=== PATIENT | male | born 1985 | race Caucasian/White ===

== ENCOUNTER 2017-02-21 21:04 | Emergency (ER) | payer SELFPAY ==
[2017-02-21 21:14] VITALS: BP 141/84; BMI 20.9
[2017-02-21] MEDS ORDERED: TYLENOL #3 TAB (W/CODEINE) PO ONE ×2 (22:53→22:54)
[2017-02-21] MEDS ORDERED: BACTRIM DS TAB PO ONE ×2 (22:53→22:54)
--- NOTE | 2017-02-22 08:59 | DR.GENAD ---
HPI - PCP Primary Care Physician: NFD - Complaint/Symptoms Chief Complaint:: ABSCESS UNDER LEFT ARM; WARM TO TOUCH; YELLOW/GREEN SMELLY DISCHARGE; VERY PAINFUL; BILATERAL HANDS STARTED PEELING AFTER ABSCESS STARTED Self Treatment fo Chief Complaint: IBUPROFEN - Source History Provided: Patient - Mode of Arrival Mode of Arrival: Ambulatory - Timing Onset of Chief Complaint: 02/16/17 <TOMAS GARCIAS - Last Filed: 02/22/17 09:16> PMH - PMH Past Medical History: Yes Past Medical History: Hypertension Past Medical History Comment: [place] NONHODGKINS LYMPHOMA Past Surgical History: No Surgical History: No History - Family History History of Family Medical Conditions: Yes Family Medical History: Diabetes Mellitus, Cancer, [place], Coronary Artery Disease, Heart Failure, Hypertension - Social History Does patient currently use any type of tobacco product: Yes Have you used tobacco products in the last 12 months: Yes Type of Tobacco Use: Smokeless Does any household member use tobacco: Yes Alcohol Use: None Do you use any recreational Drugs:: No Lives With: Spouse Lives Where: Home - infectious screening In the last 2 months have you had wt loss of >10#?: NO Have you had fever, night sweats or hemotysis?: No Have you traveled outside the country in the last 6 months?: No Isolation: Standard <TOMAS GARCIAS - Last Filed: 02/22/17 09:16> ROS - Review of Systems Eyes: No Symptoms Reported ENTM: No Symptoms Reported Respiratoy: No Symptoms Reported Cardiovascular: No Symptoms Reported Gastrointestinal/Abdominal: No Symptoms Reported Genitourinary: No Symptoms Reported Neurological: No Symptoms Reported Musculoskeletal: No Symptoms Reported Integumentary: Lesions (left arm pit erythematous tender lesion c/w carbuncle) Hematologic/Lymphatic: No Symptoms Reported Endocrine: No Symptoms Reported Psychiatric: No Symptoms Reported All Other Systems: Reviewed and Negative <XIOMARA AGUILERA - Last Filed: 02/26/17 00:28> PE - General General Appearance: Alert, In No Apparent Distress - Head Head Exam: Normal Inspection, Atraumatic - Eyes Eye exam: Normal Appearance, PERRL, EOMI - ENT ENT Exam: Normal Exam External Ear Exam: Normal External Inspection TM/Canal Exam: Bilateral Normal Nose Exam: Normal Nose Exam Mouth Exam: Normal Inspection Throat Exam: Normal Inspection - Neck Neck Exam: Normal Inspection, Full ROM - Chest Chest Inspection: Normal Inspection - Respiratory Respiratory Exam: Normal Lung Sounds Bilat Respiratory Exam: Bilateral Clear to Auscultation - Cardiovascular Cardiovascular Exam: Regular Rate, Normal Rhythm - Abdominal Exam Abdominal Exam: Normal Inspection, Normal Bowel Sounds Abdominal Tenderness: negative: RUQ, RLQ, LUQ, LLQ, Epigastrium, Suprapubic, Diffuse, Mild, Moderate, Severe, Other - Extremities Extremities Exam: Normal Inspection, Other (left axilla anteriorally a tender non fluctuant mass c/wo a carbuncle) - Back Back Exam: Normal Inspection, Full ROM - Neurologic Neurological Exam: Alert, Oriented X3, CN II-XII Intact - Psychiatric Psychiatric Exam: Normal Affect, Normal Mood - Skin Skin Exam: Warm, Dry, Intact <XIOMARA AGUILERA - Last Filed: 02/26/17 00:28> - Vital Signs Vitals: Temperature 97.9 F Pulse Rate 84 Respiratory Rate 16 Blood Pressure 141/84 O2 Sat by Pulse Oximetry 100 <TOMAS GARCIAS - Last Filed: 02/22/17 09:16> <XIOMARA AGUILERA - Last Filed: 02/26/17 00:28> - Diagnosis Discharge Problem: Carbuncle of axilla - Discharge Plan Disposition: 01 HOME, SELF-CARE Condition: Stable Prescriptions: Acetaminophen/Codeine Tab [TYLENOL w/CODEINE #3 (300 MG/30 MG) *] 1 tab PO Q4H PRN #15 tab PRN Reason: Pain Sulfamethoxazole-Trimethoprim [BACTRIM DS TAB 800/160 MG *] 1 tab PO BID #20 tab - Follow ups/Referrals Follow ups/Referrals: NFD,None [Primary Care Provider] - 3 days - Instructions Instructions: Abscess, [id number], Wound Infection, [id number]
== END 2017-02-21 23:05 | disposition home or self-care (01) ==
LOC: ER 21:04
DX: L02.432 Carbuncle of left axilla (principal)
CPT/HCPCS: 99282

== ENCOUNTER 2017-03-06 20:27 | Emergency (ER) | payer SELFPAY ==
[2017-03-06 20:35] VITALS: BP 144/83; BMI 20.9
[2017-03-06] MEDS ORDERED: PEPCID TAB 20 MG PO ONE (21:02)
[2017-03-06] MEDS ORDERED: LEVSIN/MAALOX/LIDOC VISC PO ONE (21:03)
[2017-03-06] MEDS ORDERED: REGLAN TAB 10 MG PO STA (21:10)
[2017-03-06] MEDS ORDERED: PEPCID TAB 20 MG ONE (21:10)
[2017-03-06] MEDS ORDERED: LEVSIN/MAALOX/LIDOC VISC ONE (21:10)
--- NOTE | 2017-03-06 21:10 | DR.GENAD ---
HPI - PCP Primary Care Physician: NFD - Complaint/Symptoms Chief Complaint Doctors Comments: Patient is complaining of xiphoid and epigastric pain with the pain worst when he eats for the past three days. States he has been unable to keep anything down today and he does not have any pain when he is starving but when he eats the pain is severe. states the pain is 10 of 10 and confined to the lower chest and epigastric area. States he was a patient of Dr. Mcwilliams but he has no local doctor presently. States the pain is sharp. He denies nausea, vomiting or diarrhea. states he stopped smoking in 2003 but he dip tobacco. States he drinks a beer rarely. He denies anabelle or hermaturia. states he tooka motrin this amd and drink a Sprite but he took three jarad of the drink and could not eat or drink anything else. He denies problems with stomach ulcers. Chief Complaint:: PT STATES HE IS HAVING PAIN IN THE CENTER OF HIS CHEST THAT IS WORSE WHEN HE EATS. PT STATES TO BEGIN WITH HE THOUGHT HE WAS HAVING HEART BURN, BUT TODAY HE HAS ONLY HAD WATER AND IS STILL IN PAIN. PT STATES THE ONLY TIME HE IS NOT IN PAIN IS WHEN HE FEELS LIKE HE IS STARVING OR ON AN EMPTY STOMACH. Self Treatment fo Chief Complaint: IBUPROFEN - Nurses notes reviewed Nurses Notes Review: Yes - Source History Provided: Patient - Mode of Arrival Mode of Arrival: Ambulatory - Timing Onset of Chief Complaint: 03/03/17 Came on: Gradually - Duration Duration: Constant How lon Duration: Days - Location Location: epigastric and xiphoid pain - Severity Severity: Moderate, Severe - Modifying Factors Worsens:: eating Improves:: nothing PMH - PMH Past Medical History: Yes Past Medical History: Hypertension Past Medical History Comment: LYMPHOMA Past Surgical History: No Surgical History: No History - Family History History of Family Medical Conditions: Yes Family Medical History: Diabetes Mellitus, Cancer, [place], Coronary Artery Disease, Heart Failure, Hypertension - Social History Type of Tobacco Use: Smokeless Alcohol Use: Rarely Do you use any recreational Drugs:: No Lives With: Family Lives Where: Home - infectious screening In the last 2 months have you had wt loss of >10#?: NO Have you had fever, night sweats or hemotysis?: No Have you traveled outside the country in the last 6 months?: No Isolation: Standard ROS - Review of Systems Constitutional: No Symptoms Reported, Loss of Appetite. negative: See HPI, Chills, Diaphoresis, Fever, Malaise, Weakness, Irritable, Fatigue, Other Eyes: No Symptoms Reported ENTM: No Symptoms Reported. negative: See HPI, Ear Pain, Ear Discharge, Pulling on Ears, Hearing Loss, Nose Pain, Nose Discharge, Epistaxis, Nose Congestion, Mouth Pain, Mouth Swelling, Loose Teeth, Drooling, Throat Pain, Throat Swelling, Ear Foreign Body Respiratoy: No Symptoms Reported Cardiovascular: No Symptoms Reported, Chest Pain (xiphoid chest pain) Gastrointestinal/Abdominal: Abdominal Pain (epigastric pain), Food Intolerance. negative: No Symptoms Reported, See HPI, Constipation, Diarrhea, Nausea, Vomiting, Other Genitourinary: No Symptoms Reported Neurological: No Symptoms Reported. negative: See HPI, Anxiety, Depressed, Emotional Problems, Headache, Numbness, Paresthesia, Pre-existing Deficit, Seizure, Tingling, Tremors, Weakness, Dizziness, Problems Walking, Speech Problem, Other Musculoskeletal: No Symptoms Reported Integumentary: No Symptoms Reported, Rash (macular erythematous rash on chest) Hematologic/Lymphatic: No Symptoms Reported Endocrine: negative: No Symptoms Reported, See HPI, Excessive Sweating, Flushing , Intolerance to Cold, Intolerance to Heat, Increased Hunger, Increased Thirst, Increased Urine, Unexplained Weight Gain, Unexplained Weight Loss, Failure to Thrive, Decreased Appetite, Other Psychiatric: No Symptoms Reported. negative: See HPI, Anxiety, Depression, Hallucinations, Excessive crying, Suicidal, Other PE - Vital Signs Vitals: Temperature 98.3 F Pulse Rate 101 Respiratory Rate 20 Blood Pressure 144/83 O2 Sat by Pulse Oximetry 98 - General Limitations: No Limitations General Appearance: Alert, In Distress (moderate). negative: In No Apparent Distress, Appears Intoxicated, Anxious, Lethargic, Obtunded, Obese, Cachectic, Other - Head Head Exam: Normal Inspection, Atraumatic, Normocephalic - Eyes Eye exam: Normal Appearance, PERRL, EOMI. negative: Scleral Icterus, Conjunctival Injection, Nystagmus, Miosis, Mydrasis, Periorbital Swelling, Periorbital Tenderness, Other - ENT ENT Exam: Normal Exam, Normal Oropharynx, Normal External Ear Exam, Mucous Membranes Moist, TM's Normal Bilaterally External Ear Exam: Normal External Inspection TM/Canal Exam: Bilateral Normal Nose Exam: Normal Nose Exam. negative: Sinus Tenderness, Nasal Deviation, Crepitus, Septal Hematoma, Laceration, Abrasion, Other Mouth Exam: Normal Inspection. negative: Drooling, Trismus, Lip Swelling, Tongue Elevation, Tongue Swelling, Laceration, Other Throat Exam: Normal Inspection. negative: Tonsillar Erythema, Tonsillomegaly, Tonsillar Exudate, R Peritonsillar Mass, L Peritonsillar Mass, Muffled Voice, Other - Neck Neck Exam: Normal Inspection, Full ROM, Trachea Midline. negative: Tenderness, Meningismus, Lymphadenopathy, Thyromegaly, Other - Chest Chest Inspection: Normal Inspection, Symmetric Chest Wall Rise. negative: Tenderness, Rash, Abscess, Other - Respiratory Respiratory Exam: Normal Lung Sounds Bilat Respiratory Exam: Bilateral Clear to Auscultation - Cardiovascular Cardiovascular Exam: Regular Rate, Normal Rhythm, Normal Heart Sounds. negative : Bradycardia, Tachycardia, Irregular Rhythm, Systolic Murmur, Diastolic Murmur , Rubs, Gallop, Clicks, JVD, +S1, +S2, +S3, +S4, Other - Abdominal Exam Abdominal Exam: Normal Inspection, Normal Bowel Sounds, Soft, Tenderness ( epigastric tenderness), Guarding Abdominal Tenderness: Epigastrium, Moderate. negative: RUQ, RLQ, LUQ, LLQ, Suprapubic, Diffuse, Mild, Severe, Other - Extremities Extremities Exam: Normal Inspection, Full ROM, Normal Capillary Refill. negative: Tenderness, Edema, Joint Swelling, Calf Tenderness, Other - Back Back Exam: Normal Inspection, Full ROM. negative: Tenderness, (R) CVA Tenderness, (L) CVA Tenderness, Muscle Spasm, Paraspinal Tenderness, Vertebral Tenderness, Rashes, (R) Sciatic Notch Tenderness, (L) Sciatic Notch Tendern, (R ) Straight Leg Raise, (L) Straight Leg Raise, Other - Neurologic Neurological Exam: Alert, Oriented X3, CN II-XII Intact, Normal Gait, Reflexes Normal. negative: Motor Sensory Deficit, Other - Psychiatric Psychiatric Exam: Normal Affect, Normal Mood. negative: Depressed, Agitated, Anxious, Flat Affect, Manic, Homicidal Ideation, Suicidal Ideation, Other - Skin Skin Exam: Warm, Dry, Intact, Normal Color, Rash ROR - Labs Reviewed Laboratory Results Reviewed?: Yes (all labs and x-ray results reviewed and discussed with patient) Result Diagrams: 03/06/17 21:09 03/06/17 21:09 Laboratory: WBC 10.3 X10^3/uL (3.6-10.0) H 03/06/17 21:09 RBC 4.63 X10^6/uL (4.7-6.0) L 03/06/17 21:09 Hgb 14.7 g/dL (13.5-18.0) 03/06/17 21:09 Hct 41.5 % (42.0-54.0) L 03/06/17 21:09 MCV 89.6 fL (80.0-100.0) 03/06/17 21:09 MCH 31.7 pg (27.0-34.0) 03/06/17 21:09 MCHC 35.4 g/dL (33.0-35.0) H 03/06/17 21:09 RDW 12.7 % (11.6-16.5) 03/06/17 21:09 Plt Count 208 X10^3/uL (150.0-450.0) 03/06/17 21:09 MPV 8.9 fL (7.4-11.0) 03/06/17 21:09 Neut % 84.1 % (42.0-75.0) H 03/06/17 21:09 Lymph % 8.7 % (21.0-51.0) L 03/06/17 21:09 [place] % 5.2 % (0.0-13.0) 03/06/17 21:09 Eos % 1.6 % (0.9-2.9) 03/06/17 21:09 Baso % 0.4 % (0.2-1.0) 03/06/17 21:09 Neut # 8.6 x10^3/uL (2.2-4.8) H 03/06/17 21:09 Lymph # 0.9 X10^3/uL (1.3-2.9) L 03/06/17 21:09 [place] # 0.5 x10^3/uL (0.3-0.8) 03/06/17 21:09 Eos # 0.2 x10^3/uL (0.0-0.2) 03/06/17 21:09 Baso # 0.0 X10^3/uL (0.0-0.1) 03/06/17 21:09 Absolute Nucleated RBC 0.1 /100WBC 03/06/17 21:09 INR Target Range - 03/06/17 21:09 INR 1.06 (0.8-1.3) 03/06/17 21:09 PTT 27.5 SECONDS (22.9-36.5) 03/06/17 21:09 PTT Comment - 03/06/17 21:09 Sodium 141 mmol/L (136-145) 03/06/17 21:09 Corrected Sodium TNP 03/06/17 21:09 Potassium 3.8 mmol/L (3.5-5.1) 03/06/17 21:09 Chloride 102 mmol/L (98-107) 03/06/17 21:09 Carbon Dioxide 30.8 mmol/L (21-32) 03/06/17 21:09 BUN 14 mg/dL (7-18) 03/06/17 21:09 Creatinine 1.25 mg/dL (0.70-1.30) 03/06/17 21:09 Est GFR (MDRD) Af Amer > 60 (>60) 03/06/17 21:09 Est GFR (MDRD) Non-Af > 60 (>60) 03/06/17 21:09 Glucose 92 mg/dL (65-99) 03/06/17 21:09 Calcium 9.0 mg/dL (8.5-10.1) 03/06/17 21:09 Corrected Calcium TNP 03/06/17 21:09 Magnesium 1.8 mg/dL (1.7-2.9) 03/06/17 21:09 Total Bilirubin 0.60 mg/dL (0.2-1.0) 03/06/17 21:09 AST 255 Units/L (15-37) H 03/06/17 21:09 ALT 301 Units/L (12-78) H 03/06/17 21:09 Alkaline Phosphatase 131 Units/L (46-116) H 03/06/17 21:09 Creatine Kinase 110 Units/L (39-308) 03/06/17 21:09 CK-MB (CK-2) < 1.0 ng/mL (0-4.0) 03/06/17 21:09 CK/CKMB % Calc 0.9 % (<4) 03/06/17 21:09 Troponin I < 0.02 ng/mL (0-1.5) 03/06/17 21:09 Total Protein 7.4 g/dL (6.4-8.2) 03/06/17 21:09 Albumin 4.0 g/dL (3.4-5.0) 03/06/17 21:09 Globulin 3.4 g/dL (2.5-4.5) 03/06/17 21:09 Albumin/Globulin Ratio 1.2 Ratio (1.1-2.1) 03/06/17 21:09 Amylase 73 Units/L (25-115) 03/06/17 21:09 Lipase 388 Units/L (73-393) 03/06/17 21:09 H. pylori IgG Antibody Positive (NEGATIVE) A 03/06/17 21:09 - XRAY XRAY Interpreted by: Radiologist (abdominal series: Normal abdominal series and chest x-ray.) - EKG Rate: 86 [place]: Normal Rhythm: NSR Block: None Hypertrophy: RVH ST: Nonsp - Diagnosis Discharge Problem: Duodenitis, Abnormal liver enzymes, Chest pain Abdominal pain Qualifiers: Abdominal location: epigastric Qualified Code(s): R10.13 - Epigastric pain - Discharge Plan Disposition: HOME, SELF-CARE Condition: Stable Prescriptions: Bismuth Subsalicylate [Pepto-Bismol] 524 mg PO QID PRN #240 ml PRN Reason: Metronidazole [Flagyl Tab 500 mg] 500 mg PO BID PRN #28 tab PRN Reason: Ranitidine HCl [ZANTAC TAB 150 MG *] 150 mg PO BID #60 tab Tetracycline HCl 500 mg PO BID PRN #28 capsule PRN Reason: - Follow ups/Referrals Follow ups/Referrals: LARRY,None [Primary Care Provider] - 3 days MICAELA WESTON [STAFF PHYSICIAN] - 3 days - Instructions Instructions: Duodenitis, Helicobacter Pylori Antibodies Test
[2017-03-06 21:36] LABS: BLOOD UREA NITROGEN 14 mg/dL (7-18); CARBON DIOXIDE 30.8 mmol/L (21-32); CHLORIDE 102 mmol/L (98-107); CREATININE 1.25 mg/dL (0.70-1.30); SODIUM 141 mmol/L (136-145); TROPONIN I < 0.02 ng/mL (0-1.5); eGFR BLACK RACES > 60 (>60); eGFR NON BLACK RACES > 60 (>60)
[2017-03-06 21:40] LABS: ALANINE AMINOTRANSFERASE 301 Units/L (12-78); ALKALINE PHOSPHATASE 131 Units/L (46-116); AMYLASE 73 Units/L (25-115); ASPARTATE AMINO TRANSFERASE 255 Units/L (15-37); CKMB % 0.9 % (<4); CREATINE KINASE 110 Units/L (39-308); CREATINE KINASE MB < 1.0 ng/mL (0-4.0); LIPASE 388 Units/L (73-393); MAGNESIUM 1.8 mg/dL (1.7-2.9); TOTAL PROTEIN 7.4 g/dL (6.4-8.2)
--- NOTE | 2017-03-06 21:44 | RAD ---
EXAM: Abdomen series and Chest x-ray INDICATION: Abdominal pain COMPARISION: No priors TECHNIQUE: Abdomen flat and upright, two views and PA view of the chest, single view FINDINGS: The lungs are clear. No pneumothorax or pleural effusion. The cardiac silhouette and mediastinum are normal. The bowel gas pattern is nonobstructed. No abnormal mass effect or calcification. The regiona l skeleton is intact. No free air is seen under the hemidiaphragms. IMPRESSION: Normal abdominal series and chest x-ray. Reported By:
[2017-03-06 21:48] LABS: BASOPHILS % (AUTO) 0.4 % (0.2-1.0); EOSINOPHILS # (AUTO) 0.2 x10^3/uL (0.0-0.2); EOSINOPHILS % (AUTO) 1.6 % (0.9-2.9); HEMATOCRIT 41.5 % (42.0-54.0); HEMOGLOBIN 14.7 g/dL (13.5-18.0); LYMPHOCYTES # (AUTO) 0.9 X10^3/uL (1.3-2.9); LYMPHOCYTES % (AUTO) 8.7 % (21.0-51.0); MEAN CORPUSCULAR HEMOGLOBIN 31.7 pg (27.0-34.0); MEAN CORPUSCULAR HGB CONC 35.4 g/dL (33.0-35.0); MEAN CORPUSCULAR VOLUME 89.6 fL (80.0-100.0); MEAN PLATELET VOLUME 8.9 fL (7.4-11.0); MONOCYTES # (AUTO) 0.5 x10^3/uL (0.3-0.8); MONOCYTES % (AUTO) 5.2 % (0.0-13.0); NEUTROPHILS # (AUTO) 8.6 x10^3/uL (2.2-4.8); NEUTROPHILS % (AUTO) 84.1 % (42.0-75.0); PLATELET COUNT 208 X10^3/uL (150.0-450.0); RED BLOOD COUNT 4.63 X10^6/uL (4.7-6.0); RED CELL DISTRIBUTION WIDTH 12.7 % (11.6-16.5); WHITE BLOOD COUNT 10.3 X10^3/uL (3.6-10.0)
== END 2017-03-06 22:18 | disposition home or self-care (01) ==
LOC: ER 20:40
DX: K29.80 Duodenitis without bleeding (principal); R10.13 Epigastric pain; R74.8 Abnormal levels of other serum enzymes; R07.89 Other chest pain; B96.81 Helicobacter pylori [H. pylori] as the cause of diseases classified elsewhere
CPT/HCPCS: 36415; 74022; 80053; 82150; 82550; 82553; 83690; 83735; 84484; 85025; 85610; 85730; 86677; 93005; 93010; 99283

== ENCOUNTER 2017-09-22 | Emergency (ER) | payer SELFPAY ==
[2017-09-22 00:14] VITALS: BP 132/94; BMI 22.8
--- NOTE | 2017-09-22 00:39 | DR.GENAD ---
HPI - PCP Primary Care Physician: NFD - HPI Comment HPI Comment: STARTED WHEN PATIENT SCAPE ELBOW ON CONCRETE. INCRESING REDNESS AND PAIN SINCE. USE LOCAL ANTIBIOTIC WHICH DID NOT HELP. ABSCESS STARTED DRAINING PUS. NOW TISSUE IN WOUND IS NECROTIC. NO FEVER. - Complaint/Symptoms Chief Complaint Doctors Comments: LEFT ELBOW ABSCESS WHICH IS DRAINING. Chief Complaint:: SMALL [place] AREA TO LEFT ELBOW THAT GREW IN SIZE AND IS DRAINING, BROWN DRAINAGE Self Treatment fo Chief Complaint: ANTI CREAM. AMOX PO - Nurses notes reviewed Nurses Notes Review: Yes - Source History Provided: Patient - Mode of Arrival Mode of Arrival: Ambulatory - Timing Onset of Chief Complaint: 09/21/17 Came on: Suddenly - Duration Duration: Constant Duration: Days - Severity Severity: Moderate PMH - PMH Past Medical History: Yes Past Medical History: Headaches, Hypertension Past Medical History Comment: CANCER- NON COOK/LYMP Past Surgical History: Yes Surgical History: No History Past Surgical History Comment: HEART CATH - Family History History of Family Medical Conditions: Yes Family Medical History: Diabetes Mellitus, Cancer, [place], Hypertension - Social History Does patient currently use any type of tobacco product: Yes Have you used tobacco products in the last 12 months: Yes Type of Tobacco Use: DIP Does any household member use tobacco: No Alcohol Use: None Do you use any recreational Drugs:: No Lives With: Spouse Lives Where: Home - infectious screening In the last 2 months have you had wt loss of >10#?: NO Have you had fever, night sweats or hemotysis?: No Have you traveled outside the country in the last 6 months?: No Isolation: Standard ROS - Review of Systems Constitutional: No Symptoms Reported Eyes: No Symptoms Reported ENTM: No Symptoms Reported Respiratoy: No Symptoms Reported Cardiovascular: No Symptoms Reported Gastrointestinal/Abdominal: No Symptoms Reported Genitourinary: No Symptoms Reported Neurological: No Symptoms Reported Musculoskeletal: No Symptoms Reported Integumentary: Other (ABSCESS LEFT ELBOW, DRAINIG. NECROTIC TISSUE SEEN IN ABSCESS.) Hematologic/Lymphatic: No Symptoms Reported Endocrine: No Symptoms Reported All Other Systems: Reviewed and Negative PE - Vital Signs Vitals: Temperature 98.5 F Pulse Rate 91 Respiratory Rate 20 Blood Pressure 132/94 O2 Sat by Pulse Oximetry 97 - General Limitations: No Limitations General Appearance: Alert - Head Head Exam: Normal Inspection - Eyes Eye exam: Normal Appearance - ENT ENT Exam: Normal External Ear Exam External Ear Exam: Normal External Inspection TM/Canal Exam: Bilateral Normal Mouth Exam: Normal Inspection Throat Exam: Normal Inspection - Neck Neck Exam: Normal Inspection - Chest Chest Inspection: Symmetric Chest Wall Rise - Respiratory Respiratory Exam: Normal Lung Sounds Bilat Respiratory Exam: Bilateral Clear to Auscultation - Cardiovascular Cardiovascular Exam: Regular Rate, Normal Rhythm, Normal Heart Sounds - Abdominal Exam Abdominal Exam: Normal Bowel Sounds, Soft. negative: Tenderness - Extremities Extremities Exam: Tenderness (LEFT ELBOW ABSCESS SIZE OF CANALES EGG.) - Back Back Exam: Normal Inspection - Neurologic Neurological Exam: Alert, Oriented X3 - Psychiatric Psychiatric Exam: Normal Affect - Skin Skin Exam: Erythema, Other (ABSCESS LEFT ELBO) MDM - Additional Information Additional Information Obtained From: Family - Differential Diagnosis Differential Diagnosis: ABSCESS LEFT ELBOW. CELLULITIS LT ELBOW. Course - Treatment Treatment: SEE ORDERS. - Education/Counseling Education/Counseling: Patient, Education Educated On: Diagnosis, Needs for Follow Up ROR - Labs Reviewed Result Diagrams: 09/22/17 01:01 09/22/17 01:01 Laboratory: WBC 9.4 X10^3/uL (3.6-10.0) 09/22/17 01:01 RBC 4.69 X10^6/uL (4.7-6.0) L 09/22/17 01:01 Hgb 15.0 g/dL (13.5-18.0) 09/22/17 01:01 Hct 42.0 % (42.0-54.0) 09/22/17 01:01 MCV 89.5 fL (80.0-100.0) 09/22/17 01:01 MCH 32.0 pg (27.0-34.0) 09/22/17 01:01 MCHC 35.7 g/dL (33.0-35.0) H 09/22/17 01:01 RDW 12.5 % (11.6-16.5) 09/22/17 01:01 Plt Count 273 X10^3/uL (150.0-450.0) 09/22/17 01:01 MPV 9.1 fL (7.4-11.0) 09/22/17 01:01 Neut % (Auto) 71.1 % (42.0-75.0) 09/22/17 01:01 Lymph % (Auto) 20.8 % (21.0-51.0) L 09/22/17 01:01 [place] % (Auto) 5.9 % (0.0-13.0) 09/22/17 01:01 Eos % (Auto) 1.7 % (0.9-2.9) 09/22/17 01:01 Baso % (Auto) 0.5 % (0.2-1.0) 09/22/17 01:01 Neut # (Auto) 6.7 x10^3/uL (2.2-4.8) H 09/22/17 01:01 Lymph # (Auto) 2.0 X10^3/uL (1.3-2.9) 09/22/17 01:01 [place] # (Auto) 0.6 x10^3/uL (0.3-0.8) 09/22/17 01:01 Eos # (Auto) 0.2 x10^3/uL (0.0-0.2) 09/22/17 01:01 Baso # (Auto) 0.0 X10^3/uL (0.0-0.1) 09/22/17 01:01 Absolute Nucleated RBC 0.0 /100WBC 09/22/17 01:01 ESR 15 MM/HOUR (0-15) 09/22/17 01:01 Sodium 140 mmol/L (136-145) 09/22/17 01:01 Corrected Sodium TNP 09/22/17 01:01 Potassium 3.3 mmol/L (3.5-5.1) L 09/22/17 01:01 Chloride 101 mmol/L (98-107) 09/22/17 01:01 Carbon Dioxide 28.6 mmol/L (21-32) 09/22/17 01:01 BUN 16 mg/dL (7-18) 09/22/17 01:01 Creatinine 0.98 mg/dL (0.70-1.30) 09/22/17 01:01 Est GFR (MDRD) Af Amer > 60 (>60) 09/22/17 01:01 Est GFR (MDRD) Non-Af > 60 (>60) 09/22/17 01:01 Glucose 95 mg/dL (65-99) 09/22/17 01:01 Calcium 8.6 mg/dL (8.5-10.1) 09/22/17 01:01 Corrected Calcium TNP 09/22/17 01:01 Total Bilirubin 0.60 mg/dL (0.2-1.0) 09/22/17 01:01 AST 24 Units/L (15-37) 09/22/17 01:01 ALT 37 Units/L (12-78) 09/22/17 01:01 Alkaline Phosphatase 81 Units/L (46-116) 09/22/17 01:01 C-Reactive Protein 20.10 mg/L (0-3.0) H 09/22/17 01:01 Total Protein 8.5 g/dL (6.4-8.2) H 09/22/17 01:01 Albumin 4.4 g/dL (3.4-5.0) 09/22/17 01:01 Globulin 4.1 g/dL (2.5-4.5) 09/22/17 01:01 Albumin/Globulin Ratio 1.1 Ratio (1.1-2.1) 09/22/17 01:01 - XRAY XRAY Interpreted by: Radiologist XRAY Findings: REPORT DISCUSS WITH PATIENT. Procedures - Incision and Drainage Blade Size: 11 I & D Procedure: betadine prep, sterile drapes applied, sterile dressing applied , gauze wick placed - Diagnosis Discharge Problem: Abscess Cellulitis Qualifiers: Site of cellulitis: extremity Site of cellulitis of extremity: upper extremity Laterality: left Qualified Code(s): L03.114 - Cellulitis of left upper limb - Discharge Plan Condition: Stable Prescriptions: Clindamycin HCl 300 mg PO Q6H #40 cap Ibuprofen [MOTRIN TAB 800 MG *] 800 mg PO Q8H PRN #30 tab PRN Reason: Pain/Inflammation Sulfamethoxazole-Trimethoprim [BACTRIM DS TAB 800/160 MG *] 1 tab PO BID #20 tab - Follow ups/Referrals Follow ups/Referrals: VALERIE SULLIVAN [STAFF PHYSICIAN] - 2 days JUAN F KENNY [STAFF PHYSICIAN] - 2 days NFD,None [Primary Care Provider] - 2 days - Instructions Instructions: Skin Abscess, [id number], Cellulitis, Adult, [id number] Additional Instructions: RETURN TO ED IF WORSE.
[2017-09-22] MEDS ORDERED: TORADOL 30 MG VIAL IVP ONE (01:10)
--- NOTE | 2017-09-22 01:12 | RAD ---
Three views of the left elbow Indication: Elbow pain concern for abscess Findings: There is no acute fracture or dislocation left elbow. Radio capitellar and ulna humeral gilberto nt spaces are preserved. There is soft tissue swelling within the posterior elbow and dorsal proximal forearm. No soft tissue gas identified. Impression: Soft tissue swelling posterior the left elbow and dorsal proximal forearm is suspicious f or soft tissue infection, contusion or potentially olecranon bursitis for which clinical correlation is needed. No acute fracture or malalignment of the left elbow. No elbow joint effusion or fat pad displacement. Reported By:
[2017-09-22] MEDS ORDERED: TORADOL 30 MG VIAL ONE (01:14)
[2017-09-22 01:22] LABS: BASOPHILS % (AUTO) 0.5 % (0.2-1.0); EOSINOPHILS # (AUTO) 0.2 x10^3/uL (0.0-0.2); EOSINOPHILS % (AUTO) 1.7 % (0.9-2.9); LYMPHOCYTES % (AUTO) 20.8 % (21.0-51.0); MEAN CORPUSCULAR HGB CONC 35.7 g/dL (33.0-35.0); MEAN CORPUSCULAR VOLUME 89.5 fL (80.0-100.0); MEAN PLATELET VOLUME 9.1 fL (7.4-11.0); MONOCYTES # (AUTO) 0.6 x10^3/uL (0.3-0.8); MONOCYTES % (AUTO) 5.9 % (0.0-13.0); NEUTROPHILS # (AUTO) 6.7 x10^3/uL (2.2-4.8); NEUTROPHILS % (AUTO) 71.1 % (42.0-75.0); PLATELET COUNT 273 X10^3/uL (150.0-450.0); RED BLOOD COUNT 4.69 X10^6/uL (4.7-6.0); RED CELL DISTRIBUTION WIDTH 12.5 % (11.6-16.5); WHITE BLOOD COUNT 9.4 X10^3/uL (3.6-10.0)
[2017-09-22 01:29] LABS: ALANINE AMINOTRANSFERASE 37 Units/L (12-78); ALBUMIN 4.4 g/dL (3.4-5.0); ALKALINE PHOSPHATASE 81 Units/L (46-116); ASPARTATE AMINO TRANSFERASE 24 Units/L (15-37); BLOOD UREA NITROGEN 16 mg/dL (7-18); CALCIUM 8.6 mg/dL (8.5-10.1); CARBON DIOXIDE 28.6 mmol/L (21-32); CHLORIDE 101 mmol/L (98-107); CREATININE 0.98 mg/dL (0.70-1.30); SODIUM 140 mmol/L (136-145); TOTAL PROTEIN 8.5 g/dL (6.4-8.2); eGFR BLACK RACES > 60 (>60); eGFR NON BLACK RACES > 60 (>60)
[2017-09-22] MEDS ORDERED: BACTRIM DS TAB PO ONE ×2 (01:31→01:36)
[2017-09-22] MEDS ORDERED: CLEOCIN 600 MG IV PREMIX 600 MG/50 ML BAG IV ONE (01:31)
[2017-09-22] MEDS ORDERED: XYLOCAINE 2 % (PLAIN) ONE (01:35)
[2017-09-22] MEDS ORDERED: CLEOCIN VIAL 600 MG ONE (01:36)
[2017-09-22] MEDS ORDERED: NS 100 ML IV 100 ML IV ONE (01:39)
[2017-09-22 01:54] LABS: ERYTHROCYTE SEDIMENTATION RATE 15 MM/HOUR (0-15)
[2017-09-22] MEDS ORDERED: K-LYTE EFFERVESCENT PO ONE (02:10)
[2017-09-22] MEDS ORDERED: K-LYTE EFFERVESCENT ONE (02:11)
== END 2017-09-22 02:23 | disposition home or self-care (01) ==
LOC: ER
PROC: 0X9C0ZZ Drainage of Left Elbow Region, Open Approach (ICD-10-PCS; principal; 2017-09-22)
DX: L02.414 Cutaneous abscess of left upper limb (principal); L03.114 Cellulitis of left upper limb
CPT/HCPCS: 36415; 73070; 80053; 85025; 85652; 86140; 87040; 87070; 87075; 87077; 87186; 87205; 96365; 96374; 96375; 99283; A4222; J1885; J2001; S0077